=== PATIENT | female | born 1970 | race Caucasian/White ===

== ENCOUNTER → 2016-07-13 | Outpatient (CLI) | payer OTHER ==
--- NOTE | 2016-07-13 12:58 | DX ---
Lumbar Spine, 2 views History: Back pain and right lower extremity radicular symptoms for greater than one month in a 45-ye ar-old female with no report of recent trauma. Findings: Vertebral body heights are well-maintained. There is a scoliotic curvature convex to the ri ght estimated at 17 degrees. Mild multilevel facet degenerative changes are noted. No significant dis k space loss is appreciated although disk spaces are suboptimally assessed on a scoliotic spine. Impression: Scoliosis and mild multilevel degenerative changes are noted. If symptoms persist, MRI co uld be considered for further evaluation.
== END ==
LOC: CIMAGING 11:55
PROVIDERS: ATTEND Physician Assistant Medical
DX: M41.86 Other forms of scoliosis, lumbar region (principal)
CPT/HCPCS: 72080-PO